=== PATIENT | female | born 1955 | race Caucasian/White ===

== ENCOUNTER 2016-10-03 08:34 | Inpatient (IN) | payer OTHER ==
[~2016-10-03] VITALS: Ht 157.5 cm; Wt 62.4 kg
[2016-10-03 09:12] LABS: BASOPHIL % 0.4 % (0-2); PLATELET COUNT 167 x10^3mcL (130-400); RED CELL DISTRIBUTION WIDTH 12.6 % (11.5-14.5)
[2016-10-03 09:22] LABS: CALCIUM 8.7 mg/dL (8.5-10.1); CHLORIDE SERUM 108 mmol/L (98-107); CREATININE SERUM 0.7 mg/dL (0.6-1.0); GFR1 > 60 mL/min; GLUCOSE SERUM 102 mg/dL (74-106); SODIUM SERUM 143 mmol/L (136-145)
[2016-10-03 09:26] LABS: ALBUMIN 3.6 g/dL (3.4-5.0); ALKALINE PHOSPHATASE 67 U/L (46-116); ALT/SGPT 18 U/L (14-59); AMYLASE 52 U/L (25-115); AST/SGOT 12 U/L (15-37); BILIRUBIN TOTAL 0.67 mg/dL (0.20-1.00); LIPASE 97 IU/L (73-393); TOTAL PROTEIN, SERUM 6.3 g/dL (6.4-8.2)
[2016-10-03 09:41] LABS: UA SPECIFIC GRAVITY 1.025 (1.005-1.035); microscopic required? YES; urine erythrocyte 1+ (NEGATIVE)
[2016-10-03 13:14] LABS: CHOLESTEROL/HDL RATIO 4.1; MAGNESIUM 1.8 mg/dL (1.8-2.4); PHOSPHOROUS 3.4 mg/dL (2.5-4.9)
[2016-10-03] MEDS ORDERED: FLUOXETINE HYDR20 M2 PO (13:17)
[2016-10-03] MEDS ORDERED: SIMVASTATIN10 M1 PO (13:17)
[2016-10-03] MEDS ORDERED: FENOFIBRATE MI134 MG PO (13:17)
[2016-10-03] MEDS ORDERED: GOOD SENSE OMEP20 MG PO (13:17)
[2016-10-03 13:23] LABS: FREE T4 1.04 ng/dL (0.76-1.46); FREE THYROXINE INDEX 2.8 ug/dL (1.4-4.5); T3 TOTAL 1.21 ng/mL; T4(THYROXINE) 7.9 ug/dL (4.7-13.3)
[2016-10-03 14:10] LABS: AMPHETAMINE QUAL UR NONE DETECTED (NEG <=1000)
[2016-10-03 14:50] VITALS: BP 142/74
[2016-10-03 16:52] VITALS: BP 146/56
[2016-10-03 22:00] VITALS: BP 128/55
[2016-10-04 06:16] LABS: BASOPHIL % 0.7 % (0-2); PLATELET COUNT 163 x10^3mcL (130-400); RED CELL DISTRIBUTION WIDTH 12.8 % (11.5-14.5)
[2016-10-04 06:51] VITALS: BP 122/56
[2016-10-04 07:05] LABS: CALCIUM 8.4 mg/dL (8.5-10.1); CARBON DIOXIDE 25.6 mmol/L (21-32); CHLORIDE SERUM 111 mmol/L (98-107); CREATININE SERUM 0.6 mg/dL (0.6-1.0); GFR1 > 60 mL/min; GLUCOSE SERUM 113 mg/dL (74-106); PHOSPHOROUS 3.4 mg/dL (2.5-4.9); POTASSIUM SERUM 4.5 mmol/L (3.5-5.1); SODIUM SERUM 145 mmol/L (136-145)
[2016-10-04 10:17] VITALS: BP 151/64
[2016-10-04 18:50] VITALS: BP 142/57
[2016-10-04 21:57] VITALS: BP 125/43
[2016-10-05 06:19] LABS: BASOPHIL % 0.5 % (0-2); PLATELET COUNT 170 x10^3mcL (130-400); RED CELL DISTRIBUTION WIDTH 12.7 % (11.5-14.5)
[2016-10-05 06:23] VITALS: BP 127/83
[2016-10-05 06:33] LABS: CALCIUM 8.4 mg/dL (8.5-10.1); CARBON DIOXIDE 26.2 mmol/L (21-32); CHLORIDE SERUM 111 mmol/L (98-107); CREATININE SERUM 0.6 mg/dL (0.6-1.0); GFR1 > 60 mL/min; GLUCOSE SERUM 114 mg/dL (74-106); MAGNESIUM 2.2 mg/dL (1.8-2.4); PHOSPHOROUS 3.7 mg/dL (2.5-4.9); POTASSIUM SERUM 4.6 mmol/L (3.5-5.1); SODIUM SERUM 144 mmol/L (136-145)
[2016-10-05 09:45] VITALS: BP 123/70
[2016-10-05 13:55] VITALS: BP 141/62
[2016-10-05] MEDS ORDERED: LOPERAMIDE HCL2 M1 PO (15:03)
[2016-10-05] MEDS ORDERED: FIORICET1 CAP PO (15:05)
[2016-10-05] MEDS ORDERED: PANTOPRAZOLE SO40 M1 PO ×2 (15:08→15:54)
[2016-10-05] MEDS ORDERED: LEVOFLOXACIN250 MG PO (15:23)
[2016-10-05] MEDS ORDERED: BD LACTINEX1.4 MG PO (15:25)
[2016-10-05] MEDS ORDERED: CLARITHROMYCIN500 M1 PO (15:54)
[2016-10-05] MEDS ORDERED: AMOXICILLIN500 M1 PO (15:54)
[2016-10-05 16:36] VITALS: BP 141/62
== END 2016-10-05 17:15 | disposition home or self-care (01) | DRG 392 ==
LOC: ED 08:34 → DU 12:23 → MU 10-05 14:00
PROVIDERS: Emergency Medicine; Family Medicine; Internal Medicine; ADMIT Family Medicine
PROC: 7W01X1Z Osteopathic Treatment of Cervical Region using Fascial Release (ICD-10-PCS; 2016-10-05)
PROC: 7W02X1Z Osteopathic Treatment of Thoracic Region using Fascial Release (ICD-10-PCS; 2016-10-05)
PROC: 0DB38ZX Excision of Lower Esophagus, Via Natural or Artificial Opening Endoscopic, Diagnostic (ICD-10-PCS; principal; 2016-10-05 08:00)
PROC: 0DB68ZX Excision of Stomach, Via Natural or Artificial Opening Endoscopic, Diagnostic (ICD-10-PCS; 2016-10-05 08:00)
DX: K21.9 Gastro-esophageal reflux disease without esophagitis (principal); N39.0 Urinary tract infection, site not specified; F12.10 Cannabis abuse, uncomplicated; E78.5 Hyperlipidemia, unspecified; M99.02 Segmental and somatic dysfunction of thoracic region; M99.01 Segmental and somatic dysfunction of cervical region; F41.8 Other specified anxiety disorders; Z87.891 Personal history of nicotine dependence; Z68.25 Body mass index [BMI] 25.0-25.9, adult
CPT/HCPCS: 43235; 83880; 84439; C9113; J0696; J1200; J1610; J1885; J2250; J2310; J3010; J3490; J7030; Q0092; Q9966; Q9967

== ENCOUNTER 2016-10-05 22:30 | Emergency (ER) | payer OTHER ==
[~2016-10-05 22:30] MED LIST: AMOXICILLIN500 M1 PO; BD LACTINEX1.4 MG PO; CLARITHROMYCIN500 M1 PO; FENOFIBRATE MI134 MG PO; FIORICET1 CAP PO; FLUOXETINE HYDR20 M2 PO; GOOD SENSE OMEP20 MG PO; LEVOFLOXACIN250 MG PO; LOPERAMIDE HCL2 M1 PO; PANTOPRAZOLE SO40 M1 PO; SIMVASTATIN10 M1 PO
[2016-10-05 23:03] LABS: BASOPHIL % 0.3 % (0-2); PLATELET COUNT 167 x10^3mcL (130-400); RED CELL DISTRIBUTION WIDTH 12.5 % (11.5-14.5)
[2016-10-05 23:12] LABS: CALCIUM 8.7 mg/dL (8.5-10.1); CARBON DIOXIDE 22.1 mmol/L (21-32); CHLORIDE SERUM 109 mmol/L (98-107); CREATININE SERUM 0.7 mg/dL (0.6-1.0); GFR1 > 60 mL/min; GLUCOSE SERUM 134 mg/dL (74-106); POTASSIUM SERUM 3.8 mmol/L (3.5-5.1); SODIUM SERUM 143 mmol/L (136-145)
[2016-10-05 23:16] LABS: ALBUMIN 3.7 g/dL (3.4-5.0); ALKALINE PHOSPHATASE 70 U/L (46-116); ALT/SGPT 21 U/L (14-59); AMYLASE 63 U/L (25-115); AST/SGOT 17 U/L (15-37); LIPASE 115 IU/L (73-393); TOTAL PROTEIN, SERUM 6.6 g/dL (6.4-8.2)
[2016-10-06 00:38] VITALS: BP 118/56
== END 2016-10-06 00:39 | disposition home or self-care (01) ==
LOC: ED 22:30
PROVIDERS: Emergency Medicine
DX: K52.9 Noninfective gastroenteritis and colitis, unspecified (principal); K22.70 Barrett's esophagus without dysplasia
CPT/HCPCS: 83880; J1885; J2550; J7030

== ENCOUNTER 2019-03-27 08:29 | Emergency (ER) | payer OTHER ==
[~2019-03-27] VITALS: Ht 157.5 cm; Wt 64.9 kg
[2019-03-27 08:31] VITALS: Ht 157.5 cm; Wt 64.9 kg
[2019-03-27 09:12] LABS: UA SPECIFIC GRAVITY >=1.030 (1.005-1.035); microscopic required? YES; urine erythrocyte 2+ (NEGATIVE)
[2019-03-27 09:32] LABS: CALCIUM 8.4 mg/dL (8.5-10.1); CARBON DIOXIDE 27.4 mmol/L (21-32); CHLORIDE SERUM 105 mmol/L (98-107); CREATININE SERUM 0.8 mg/dL (0.6-1.0); GFR1 > 60 mL/min; GLUCOSE SERUM 119 mg/dL (74-106); SODIUM SERUM 140 mmol/L (136-145)
[2019-03-27 09:37] LABS: ALBUMIN 3.5 g/dL (3.4-5.0); ALKALINE PHOSPHATASE 103 U/L (46-116); ALT/SGPT 19 U/L (14-59); AST/SGOT 11 U/L (15-37); BILIRUBIN TOTAL 1.1 mg/dL (0.20-1.00); CHOLESTEROL 167 mg/dL (<200); HDL CHOLESTEROL 42 mg/dL (40-60); TOTAL PROTEIN, SERUM 6.8 g/dL (6.4-8.2); TRIGLYCERIDES 155 mg/dL (<150)
[2019-03-27 10:17] LABS: BASOPHIL % 0.1 % (0-2); PLATELET COUNT 161 x10^3mcL (130-400); RED CELL DISTRIBUTION WIDTH 13.1 % (11.5-14.5)
[2019-03-27 13:52] VITALS: BP 129/65
== END 2019-03-27 13:52 | disposition home or self-care (01) ==
LOC: ED 08:29
PROVIDERS: Specialist
DX: N39.0 Urinary tract infection, site not specified (principal); N83.202 Unspecified ovarian cyst, left side; D72.829 Elevated white blood cell count, unspecified; E78.00 Pure hypercholesterolemia, unspecified; F32.9 Major depressive disorder, single episode, unspecified; Z98.890 Other specified postprocedural states; Z90.89 Acquired absence of other organs
CPT/HCPCS: J0696; J1885; J7030